=== PATIENT | female | born 1950 | race Caucasian/White ===

== ENCOUNTER → 2016-06-24 | Outpatient (CLI) | payer OTHER ==
--- NOTE | 2016-06-24 17:39 | DX ---
PA and Lateral Chest History: Cough x6 weeks in a 65-year-old female. Findings: The heart and mediastinal contours are normal. Pulmonary vascularity is normal. There is c entral peribronchial thickening. There are no alveolar opacities seen to suggest pneumonia. Degenerat leobardo changes are seen in the spine. Impression: Mild airways disease with no pneumonia.
== END ==
LOC: FIMAGING 12:13
PROVIDERS: ATTEND Internal Medicine
DX: J06.9 Acute upper respiratory infection, unspecified (principal)

== ENCOUNTER → 2016-12-24 | Outpatient (CLI) | payer OTHER | LOC: FIMAGING 09:39 | PROVIDERS: ATTEND Registered Nurse Maternal Newborn | DX: N63 Unspecified lump in breast (principal) | CPT/HCPCS: G0204 ==

== ENCOUNTER → 2017-01-10 | Outpatient (CLI) | payer OTHER ==
[~2017-01-10] MED LIST: BUPIVACAINE 0.5% 10 ML SDV ONE; LIDO/EPI 1% **Not for Epidural 20 ML MDV ONE; LIDOCAINE 1% 300 MG/30 ML SDV ONE; THROMBIN (BOVINE) 5,000 UNIT VIAL TP ONE
== END ==
LOC: FIMAGING 07:06
PROVIDERS: ATTEND Registered Nurse Maternal Newborn
PROC: 0HBU3ZX Excision of Left Breast, Percutaneous Approach, Diagnostic (ICD-10-PCS; principal; 2017-01-10)
DX: N63 Unspecified lump in breast (principal)

== ENCOUNTER → 2017-01-14 | Outpatient (CLI) | payer OTHER | LOC: FIMAGING 09:17 | PROVIDERS: ATTEND Registered Nurse Maternal Newborn | DX: N64.89 Other specified disorders of breast (principal) | CPT/HCPCS: G0206 ==

== ENCOUNTER → 2017-02-09 | Outpatient (CLI) | payer OTHER ==
[~2017-02-09] MED LIST changes: -BUPIVACAINE 0.5% 10 ML SDV ONE; +GADOBUTROL 10 ML VIAL IVP ONE; -LIDO/EPI 1% **Not for Epidural 20 ML MDV ONE; -LIDOCAINE 1% 300 MG/30 ML SDV ONE; -THROMBIN (BOVINE) 5,000 UNIT VIAL TP ONE
== END ==
LOC: FIMAGING 08:06
PROVIDERS: ATTEND Registered Nurse Maternal Newborn
DX: L76.32 Postprocedural hematoma of skin and subcutaneous tissue following other procedure (principal); R92.8 Other abnormal and inconclusive findings on diagnostic imaging of breast
CPT/HCPCS: 0159T; 77059; A9585; C8908